=== PATIENT | female | born 1970 | race Caucasian/White ===

== ENCOUNTER → 2016-12-03 | Outpatient (CLI) | payer OTHER ==
[~2016-12-03] MED LIST: ABILIFY PO; ACETAMINOPHEN PO; ACETAMINOPHEN PR; ACTOS PO; ADVAIR 250-501 EACH; AL-MAG HYDROX-S30 M1 PO; ALBUTEROL17 GM INH; APEDRA SUBQ; APIDRA; APIDRA (NF100 UNITS/; APIDRA (NF100 UNITS/ SUBQ; APIDRA SUBQ; ASPIRINEC PO; BACID PO; BACTRIM DS TABL1 TA1 PO; BACTRIM DS TABL1 TA2 PO; BACTRIM DS TABL1 TAB PO; BENTYL10 M1 PO; BENTYL20 MG PO; BUPAP PO; CARAFATE PO; CARAFATE1 GM PO; CELEXA PO; CELEXA10 M1 PO; CELEXA10 MG PO; CELEXA20 MG PO; CHANTIX PO; CIPRO PO; CITALOPRAM HBR10 MG PO; CITALOPRAM HBR40 MG PO; COLACE PO; COLESTIPOL HCL1 G PO; COMBIVENT MININEB INH; COMBIVENT U/D3 M1 INH; COMPAZINE10 MG PO; COUMADIN1 MG PO; CREON 101 CA1 DOB; CREON 101 CA1 PO; CREON DR 12,001 EAC1; CREON DR 12,001 EAC1 PO; CREON DR 12,001 EACH PO; CREON DR 24,001 EACH PO; CRESTOR PO; CYANOCOBAL1000 MCG/M SUBQ; DARVOCET-N 1001 TAB PO; DESYREL50 MG PO; DIAZEPAM PO; DICYCLOMINE HCL20 MG PO; DIFLUCAN100 MG PO; FAMOTIDINE PO; FLAGYL PO; FLEXERIL PO; FLEXERIL10 MG PO; FLONASE 0.05% N16 G1; FOLIC ACID1 MG PO; GI COCKTAIL PO; HUMULIN N100 U/ML SQ; HUMULIN N100 U/ML SUBQ; HYDROCODON-ACE1 EAC7 PO; HYDROCODON-ACE1 EAC9 PO; KLONOPIN PO; KLONOPIN0.5 MG PO; LAMICTAL ODT200 MG PO; LAMICTAL PO; LAMICTAL100 MG PO; LANTUS INSULIN SQ; LANTUS100 U/ML; LANTUS100 U/ML INJ; LANTUS100 U/ML SQ; LANTUS100 U/ML SUBQ; LANTUS100 UNITS/ SUBQ; LEVAQUIN750 MG PO; LEVEMIR SUBQ; LEVSIN SUBLINGUAL; LEXAPRO PO; LEXAPRO20 MG PO; LIDOCAINE HCL 220 ML PO; LIPITOR PO; LOMOTIL TABLET1 TAB PO; LORTAB 5/500 TA1 TA1 PO; LORTAB 7.5-5001 TAB PO; MACROBID 100 M100 MG PO; MEDROL PO; MIRAPEX1 MG PO; MONOSTAT PV; NAPROXEN PO; NEURONTIN PO; NEURONTIN300 MG PO; NEURONTIN600 MG PO; NORCO1 TAB 10/3 PO; NOVOLIN 70/30 V10 M1 SUBQ; NOVOLOG INSULIN SQ; NOVOLOG100 U/M1 SUBQ; NOVOLOG100 U/M2; NOVOLOG100 U/M2 SQ; NOVOLOG100 U/ML SQ; NOVOLOG100 U/ML SUBQ; NOVOLOG7030 SUBQ; OCTREOTIDE INJ; ONDANSETRON HCL4 MG PO; ONDANSETRON ODT4 MG PO; OXECTA7.5 MG PO; OXYCODONE15 M1 PO; OXYCONTIN10 MG PO; PANTOPRAZOLE SO40 MG PO; PERCOCET 5-3251 TAB PO; PHENERGAN PO; PHENERGAN PR; PHENERGAN25 M1 DOB; PHENERGAN25 M1 PO; PHENERGAN25 MG PO; PRAVACHOL20 MG PO; PRAVASTATIN SOD40 MG PO; PREDNISONE PO; PRINCIPEN500 M2 PO; PROTONIX PO; QVAR7.3 G1 INH; REGLAN PO; REGLAN10 MG; REGLAN10 MG PO; REQUIP1 MG PO; ROBITUSSIN COU118 ML PO; ROBITUSSIN-DM120 ML PO; SANDOSTATIN INJ; SKELAXIN PO; SUCRALFATE1 G/10 ML PO; SYMBICORT INH; TPN; TRAZODONE HCL100 MG PO; TRAZODONE PO; ULTRAM PO; VANCOCIN HCL250 M1 PO; VICODIN 5/500 T1 TAB PO; VITAMIN B 12; VITAMIN B 12 INJ; VITAMIN B-1250 MCG PO; WELCHOL625 MG PO; XANAX1 MG PO; ZEGERID 40 MG C1 CAP PO; ZEGERID40 MG/PKT PO; ZITHROMAX PO; ZITHROMAX1 G/PKT PO; ZOFRAN; ZOFRAN ODT4 MG PO; ZOFRAN PO; ZOFRANODT PO; ZOFRANODT SL; ZYRTEC10 M2 PO; [UNRECOGNIZED DRUG - CODE] PO; [UNRECOGNIZED DRUG - OTHER]; [UNRECOGNIZED DRUG - OTHER] PO; [UNRECOGNIZED DRUG - OTHER] PV
--- NOTE | ~2016-12-03 | CT55 ---
[facility] A Service [facility] RADIOLOGY TEXT RESULTS PATIENT: RADHA JAVED LOCATION: [facility] : 74 UNIT #: [id number] AGE: [address]: Lee Slade MD SEX: F ORDER DR: [id number] [address] [address] [id number] O MR#: [id number] [facility] #: [id number] NAME: RADHA JAVED : 1970 SEX: F STUDY DATE/TIME: 12/03/2016 9:55 UNIT: [facility] ROOM: STUDY DESCRIPTION: CT Chest W Con Attending Physician: Lee Slade M.D. Referring Physician: Lee Slade M.D. Ordering Physician: Lee Slade M.D. Primary Care Physician: Jordy Raya M.D. MEDICAL IMAGING REPORT This report is preliminary unless electronic signature is present. EXAM CT scan of the chest with contrast. HISTORY Recent diagnosis of breast cancer. Evaluate for metastatic disease. TECHNIQUE Axial 5 mm images were obtained through the chest. This CT exam was performed with one or more of the following radiation dose reduction techniques: automatic exposure control, adjustment of mA and/or kV according to patient size, and iterative reconstruction. FINDINGS The left thyroid lobe has been removed. The right thyroid lobe is normal. 100 mL of Isovue-370 were utilized. The ascending aorta is normal in size measuring 3.4 cm in diameter. The descending aorta is normal. There is no mediastinal or hilar adenopathy. There is a separate abdomen and pelvic CT scan. The bones are unremarkable. IMPRESSION 1. No active disease. 2. No evidence of metastatic disease. Dictated by... Carlos Clinton M.D. THIS IS AN ELECTRONICALLY VERIFIED REPORT Carlos Clinton M.D. at 12/03/2016 4:57 PM LOUIS/michael TD: 12/03/2016 16:26 [facility] A Service [facility] RADIOLOGY TEXT RESULTS PATIENT: RADHA JAVED LOCATION: [facility] #: [id number] : 74 UNIT #: [id number] AGE: [address]: Lee Slade MD SEX: F ORDER DR: LEVI #: [id number] MEDICAL IMAGING REPORT Page 1 of 1
--- NOTE | ~2016-12-03 | CT2 ---
[facility] A Service [facility] RADIOLOGY TEXT RESULTS PATIENT: RADHA JAVED LOCATION: [facility] : 74 UNIT #: [id number] AGE: [address]: Lee Slade MD SEX: F ORDER DR: [id number] [address] [address] [id number] O MR#: [id number] [facility] #: [id number] NAME: RADHA JAVED : 1970 SEX: F STUDY DATE/TIME: 12/03/2016 9:55 UNIT: [facility] ROOM: STUDY DESCRIPTION: CT Abd and Pelv W Cont Attending Physician: Lee Slade M.D. Referring Physician: Lee Slade M.D. Ordering Physician: Lee Slade M.D. Primary Care Physician: Jordy Raya M.D. MEDICAL IMAGING REPORT This report is preliminary unless electronic signature is present. EXAM CT abdomen and pelvis with contrast INDICATION Breast cancer diagnosed 2 weeks ago. Malabsorption syndrome diagnosis September 2016. J-tube insertion 1 week ago. Evaluate for metastatic disease. COMPARISON 10/07/2016. TECHNIQUE Patient has a separate chest CT. The patient was given 100 mL of Isovue-370 and axial 5 mm images were obtained through the abdomen and pelvis. Oral contrast was also administered. This CT exam was performed with one or more of the following radiation dose reduction techniques: Automatic exposure control, adjustment of mA and/or kV according to patient size, and iterative reconstruction. FINDINGS The gallbladder has been removed. The liver, spleen, adrenal glands, and kidneys are normal. The pancreas is atrophic with numerous parenchymal calcifications. There is a J-tube present. The bowel appears normal. The aorta is normal in size and there is no adenopathy. The uterus and adnexal regions are normal except for an IUD. The bladder is normal. The bones are unremarkable. IMPRESSION 1. There is no CT evidence of breast cancer or metastatic disease. 2. A J-tube is present. 3. The pancreas is atrophic with scattered calcifications in the [facility] A Service [facility] RADIOLOGY TEXT RESULTS PATIENT: RADHA JAVED LOCATION: [facility] : 74 UNIT #: [id number] AGE: [address]: Lee Slade MD SEX: F ORDER DR: parenchyma. Dictated by... Carlos Clinton M.D. THIS IS AN ELECTRONICALLY VERIFIED REPORT Carlos Clinton M.D. at 12/03/2016 4:57 PM LOUIS/bell TD: 12/03/2016 16:15 JOB #: [id number] MEDICAL IMAGING REPORT Page 1 of 1
== END | disposition home or self-care (01) ==
LOC: SCT 08:02 → SMRI 08:45
DX: C50.111 Malignant neoplasm of central portion of right female breast (principal); K86.89 Other specified diseases of pancreas
CPT/HCPCS: 71260; 74177; Q9967

== ENCOUNTER → 2016-12-09 | Outpatient (CLI) | payer OTHER ==
--- NOTE | ~2016-12-09 | NM8 ---
[facility] A Service of [facility] & [facility] RADIOLOGY TEXT RESULTS PATIENT: RADHA JAVED LOCATION: [facility] : 74 UNIT #: [id number] AGE: [address]: Lee Slade MD SEX: F ORDER DR: [id number] [facility] [address] [facility]. [place], [place] [address] [id number] O MR#: [id number] Acc #: [id number] NAME: RADHA JAVED. : 1970 SEX: F STUDY DATE/TIME: 12/09/2016 11:58 UNIT: [facility] ROOM: STUDY DESCRIPTION: ND Bone or Joint Whole Body Attending Physician: Lee Slade M.D. Referring Physician: Lee Slade M.D. Ordering Physician: Lee Slade M.D. Primary Care Physician: Jordy Raya M.D. MEDICAL IMAGING REPORT This report is preliminary unless electronic signature is present EXAM Whole-body bone scan, 12/09/2016 HISTORY Order states whole-body bone scan with x-rays of hot spots if needed. Breast cancer. History sheet states no pain or trauma. Breast cancer diagnosed about a month ago. No chemotherapy or radiation. Diabetic. FINDINGS The patient received 22.3 mCi technetium 99m MDP intravenously and anterior and posterior. Comparison - CT chest abdomen pelvis 12/03/2016. There is a focus of moderate increased uptake in the right anterolateral 3rd rib corresponding with a healing fracture deformity by CT of the chest of 12/03/2016. There is a focus of moderate increased uptake in the right anterior 8th rib near the costochondral junction. There is no correlative CT finding. Isolated metastatic lesion is doubtful. The remainder of the whole-body bone scan is unremarkable. Kidneys are visualized. IMPRESSION 1. Right anterolateral 3rd rib fracture deformity accounts for bone scan uptake when compared to the CT of 12/03/2016. 2. Focus of abnormal uptake at the right anterior 8th rib costochondral junction without correlative CT finding most likely not due to metastatic disease. Solitary metastatic lesion is statistically doubtful. The remainder of the whole-body bone scan is normal. [facility] A Service of [facility] & [facility] RADIOLOGY TEXT RESULTS PATIENT: RAD[facility] JAV[facility] [id number] : 74 UNIT #: [id number] AGE: [address]: Lee Slade MD SEX: F ORDER DR: Dictated by... Miranda Montero M.D. THIS IS AN ELECTRONICALLY VERIFIED REPORT Miranda Montero M.D. at 12/11/2016 8:32 AM LOUISE/deon TD: 12/10/2016 14:37 JOB #: [id number] MEDICAL IMAGING REPORT Page 1 of 1 COPY
== END | disposition home or self-care (01) ==
LOC: CNUC 08:08
DX: C50.111 Malignant neoplasm of central portion of right female breast (principal); R94.8 Abnormal results of function studies of other organs and systems
CPT/HCPCS: 78306; A9503

== ENCOUNTER → 2017-02-12 | Outpatient (CLI) | payer OTHER ==
--- NOTE | ~2017-02-12 | MR2 ---
[facility] A Service of [facility] RADIOLOGY TEXT RESULTS PATIENT: RADHA JAVED LOCATION: [facility] : 74 UNIT #: [id number] AGE: [address]: Maria Antonia Theodore MD SEX: F ORDER DR: [id number] [address] [address] [id number] O MR#: [id number] Acc #: [id number] NAME: RADHA JAVED : 1970 SEX: F STUDY DATE/TIME: 02/12/2017 9:49 UNIT: [facility] ROOM: STUDY DESCRIPTION: MR Abdomen WWo Cont Attending Physician: Maria Antonia Theodore M.D. Referring Physician: Maria Antonia Theodore M.D. Ordering Physician: Maria Antonia Theodore M.D. Primary Care Physician: Jordy Raya M.D. MRI CENTER REPORT This report is preliminary unless electronic signature is present. EXAM MRI of the abdomen without with contrast, 02/12/2017 INDICATION 46-year-old female with an abnormal CT. Possible liver mass, possible metastatic disease. Left-sided abdominal pain 5 months. Breast cancer, pancreatitis, diabetes, MEN 1 syndrome. Status post cholecystectomy and Whipple procedure. Right mastectomy. TECHNIQUE Multiplanar, multisequence MRI of the abdomen was performed before and after the uneventful administration of 9 mL MultiHance contrast material. COMPARISON Correlation is made with CT 01/26/2017. FINDINGS MRI ABDOMEN: Included lung bases demonstrate no effusion. Aorta demonstrates no aneurysm or dissection. There are operative changes involving the pancreas in this patient with a history of Whipple procedure with apparent resection of the head and body of the pancreas. The gallbladder is also surgically absent. There are signal changes within the pancreas most characteristic of sequela of chronic pancreatitis as well. The liver measures 16.5 cm craniocaudal. No significant fatty infiltration of the liver. There is diffuse dilatation of the remaining pancreatic duct. This measures up to about 4.0-5.0 mm which is unchanged from the prior CT. There is no intrahepatic ductal dilatation. The spleen and adrenal glands are unremarkable. Kidneys demonstrate no hydronephrosis. There is a tiny 3.0 mm cyst in the mvt-uz-pkcgy pole right kidney and there is a tiny proteinaceous or hemorrhagic cyst in the STS. [facility] A Service of [facility] RADIOLOGY TEXT RESULTS PATIENT: RADHA JAVED LOCATION: [facility] #: [id number] : 74 UNIT #: [id number] AGE: [address]: Maria Antonia Theodore MD SEX: F ORDER DR: upper pole left kidney measuring only about 2.0 mm. No enhancing renal mass. Residual pancreas enhances unremarkably. Hepatic vasculature is patent. MRI demonstrates too numerous to count (greater than 20) tiny targetoid enhancing masses within the liver. These are confirmed on diffusion weighted images and are faintly T2 positive as well. Two index lesions in the extreme dome of the liver measure 10.0 and 6.0 mm respectively. Index lesion in segment 5 of the liver measures 9.0 mm. Index lesion in the left hepatic lobe measures 10.0 mm. Please note additional lesions are scattered throughout both the right and to a lesser extent left hepatic lobes and overall burden of metastatic deposits within the liver is probably best demonstrated on diffusion weighted images. Many of the lesions are 5.0 mm or less in overall size. They are probably best demonstrated on postcontrast image on the 90-second delayed phase series. There is trace pneumobilia. No distinct adenopathy. Bowel demonstrates no obstruction. No ascites or drainable fluid collection. Marrow signal unremarkable. There is an apparent J-tube or other small bowel feeding tube present in the left mid abdomen. IMPRESSION 1. Abnormal examination. There are too numerous to count (greater than 20) tiny targetoid enhancing masses within the right greater than left hepatic lobes most characteristic of metastatic disease based on imaging features and enhancement characteristics. These measure on the order of 1.0 cm or less with many of the presumed metastatic deposits on the order of 5.0 mm or less. These are best demonstrated on 90-second delayed phase postcontrast images and overall burden of involvement of the liver is best demonstrated on diffusion weighted images. Imaging features most characteristic of breast metastases until proven otherwise. 2. There is no distinct adenopathy. Hepatic vasculature patent. 3. Postop changes related to Whipple procedure including associated cholecystectomy. Chronic appearing changes of chronic pancreatitis and pancreatic ductal dilatation similar to prior CT. 4. Very tiny renal cysts. 5. J-tube or other small bowel feeding tube noted. STAT * RESULT Dictated by... Lamberto Saini M.D. THIS IS AN ELECTRONICALLY VERIFIED REPORT Lamberto Saini M.D. at 02/15/2017 8:45 AM ROSE/deon [facility] A Service of [facility] RADIOLOGY TEXT RESULTS PATIENT: RADHA JAVED LOCATION: [facility] : 74 UNIT #: [id number] AGE: [address]: Maria Antonia Theodore MD SEX: F ORDER DR: TD: 02/15/2017 08:28 JOB #: [id number] MRI CENTER REPORT Page 1 of 1
== END | disposition home or self-care (01) ==
LOC: SMRI 09:30
DX: R93.2 Abnormal findings on diagnostic imaging of liver and biliary tract (principal); R16.0 Hepatomegaly, not elsewhere classified; C50.011 Malignant neoplasm of nipple and areola, right female breast; K83.8 Other specified diseases of biliary tract; Z90.49 Acquired absence of other specified parts of digestive tract; Z98.890 Other specified postprocedural states
CPT/HCPCS: 74183; A9581; J1642

== ENCOUNTER → 2017-02-26 | Outpatient (CLI) | payer OTHER ==
[~2017-02-26] VITALS: Ht 165.1 cm; Wt 41.3 kg
--- NOTE | ~2017-02-26 | XA60 ---
[facility] A Service of [facility] & [facility] RADIOLOGY TEXT RESULTS PATIENT: RADHA JAVED LOCATION: [facility] : 74 UNIT #: [id number] AGE: [address]: Maria Antonia Theodore MD SEX: F ORDER DR: [id number] [facility] [address] [facility]. [place], [place] [address] [id number] O MR#: [id number] Acc #: [id number] NAME: RADHA JAVED. : 1970 SEX: F STUDY DATE/TIME: 02/26/2017 10:13 UNIT: [facility] ROOM: STUDY DESCRIPTION: XA BX Perc Liver Attending Physician: Maria Antonia Theodore M.D. Referring Physician: Maria Antonia Theodore M.D. Ordering Physician: Maria Antonia Theodore M.D. Primary Care Physician: Jordy Raya M.D. MEDICAL IMAGING REPORT This report is preliminary unless electronic signature is present EXAM Ultrasound-guided core biopsy liver mass CLINICAL HISTORY Multiple liver masses. History of breast cancer. Biopsy requested to evaluate for possible metastatic disease. PROCEDURE Informed consent was obtained. A skin site was selected with ultrasound guidance and marked. Fentanyl and Versed were administered prior to IV conscious sedation with hemodynamic monitoring provided by the nursing staff throughout the procedure. Total sedation time 20 minutes. The procedure was selected skin site was sterilely prepped and draped and then locally anesthetized. An INRAD needle gun was used to obtain core specimens from a left lower lobe liver lesion. There are no immediate complications and the patient tolerated the procedure well. Specimen was sent for pathologic evaluation. IMPRESSION 1. Successful ultrasound-guided core biopsy left lobe liver lesions without complication. 2. Conscious sedation as above. Dictated by... Louis Martini M.D. THIS IS AN ELECTRONICALLY VERIFIED REPORT Louis Martini M.D. at 03/01/2017 9:06 AM TEV/aa TD: 02/27/2017 09:15 [facility] A Service of [facility] & [facility] RADIOLOGY TEXT RESULTS PATIENT: RADHA JAVED LOCATION: [facility] #: [id number] : 74 UNIT #: [id number] AGE: [address]: Maria Antonia Theodore MD SEX: F ORDER DR: LEVI #: [id number] MEDICAL IMAGING REPORT Page 1 of 1 COPY
[2017-02-26 09:00] LABS: HEMATOCRIT 30.8 % (35.0-45.0); HEMOGLOBIN 10.3 gm/dL (12.0-16.0); MEAN CELL VOLUME 89.4 FL (83-96); MEAN CORPUSCULAR HEMOGLOBIN 29.9 PG (28-34); MEAN CORPUSCULAR HGB CONC 33.5 g/dL (30-36); MEAN PLATELET VOLUME 6.5 FL (6.5-11.5); RED BLOOD COUNT 3.45 X10e (3.90-5.30); RED CELL DISTRIBUTION WIDTH 14.4 % (11.0-15.5); WHITE BLOOD COUNT 9.3 X10e3 (4.0-10.5)
[2017-02-26 09:21] LABS: PARTIAL THROMBOPLASTIN TIME 25.7 SECONDS (23.5-31.3); PROTHROMBIN TIME (PATIENT) 10.7 SECONDS (10.0-11.7)
== END | disposition home or self-care (01) ==
LOC: CIVR 08:10
PROVIDERS: Internal Medicine Hematology
DX: C78.7 Secondary malignant neoplasm of liver and intrahepatic bile duct (principal); C50.011 Malignant neoplasm of nipple and areola, right female breast; Z17.0 Estrogen receptor positive status [ER+]
CPT/HCPCS: 76942; 85027; 85610; 85730; 88307; 99152; J1170; J1642; J2250; J2550; J3010

== ENCOUNTER → 2017-03-12 | Outpatient (CLI) | payer OTHER ==
--- NOTE | ~2017-03-12 | MR17 ---
[facility] A Service [facility] RADIOLOGY TEXT RESULTS PATIENT: RADHA JAVED LOCATION: [facility] : 74 UNIT #: [id number] AGE: [address]: Maria Antonia Theodore MD SEX: F ORDER DR: [id number] [address] [address] [id number] O MR#: [id number] Acc #: [id number] NAME: RADHA JAVED : 1970 SEX: F STUDY DATE/TIME: 03/12/2017 12:11 UNIT: [facility] ROOM: STUDY DESCRIPTION: MR Brain WWo Contrast Attending Physician: Maria Antonia Theodore M.D. Referring Physician: Maria Antonia Theodore M.D. Ordering Physician: Maria Antonia Theodore M.D. Primary Care Physician: Jordy Raya M.D. MRI CENTER REPORT This report is preliminary unless electronic signature is present. EXAM MRI of the brain with and without contrast dated 03/12/2017. COMPARISON None. HISTORY Right breast cancer, liver cancer. Evaluate for brain metastasis. FINDINGS Multisequence multiplanar imaging of the brain was obtained with and without contrast. GFR measured greater than 60. 9 mL of MultiHance was administered intravenously. Diffuse age-appropriate parenchymal volume is seen. Increased T2 nonenhancing lesions are noted in the macrina, nonspecific. No enhancing lesions to suggest metastasis. No acute stroke, intracranial hemorrhage, hydrocephalus or midline shift. Thick slices through the sella with the pituitary gland and pineal region are unremarkable. Degenerative changes are noted at C3-4. Paranasal sinuses, orbits with the ocular structures and mastoids do not demonstrate any significant abnormality. IMPRESSION 1. Increased T2-signal lesions are noted in the macrina, likely related to mild chronic microvascular ischemic change or migraine based on age and statistics. 2. No acute stroke, enhancing mass to suggest metastasis, hydrocephalus or midline shift. Dictated by... Ivania Martinez M.D. [facility] A Service [facility] RADIOLOGY TEXT RESULTS PATIENT: RADHA JAVED LOCATION: [facility] : 74 UNIT #: [id number] AGE: [address]: Maria Antonia Theodore MD SEX: F ORDER DR: THIS IS AN ELECTRONICALLY VERIFIED REPORT Ivania Martinez M.D. at 03/16/2017 2:48 PM CPR/cmm TD: 03/15/2017 15:26 JOB #: [id number] MRI CENTER REPORT Page 1 of 1
== END | disposition home or self-care (01) ==
LOC: SMRI 10:42
DX: C50.011 Malignant neoplasm of nipple and areola, right female breast (principal)
CPT/HCPCS: 70553; A9581; J1642